=== PATIENT | female | born 1935 ===

== ENCOUNTER 2021-01-10 07:16 | Outpatient (CLI) | payer OTHER | END 2021-01-10 07:25 | disposition home or self-care (01) | LOC: NUCLEAR 07:16 | PROVIDERS: ATTEND Surgery | DX: I73.9 Peripheral vascular disease, unspecified (principal) ==

== ENCOUNTER 2021-01-11 07:48 | Outpatient (CLI) | payer OTHER | END 2021-01-11 07:53 | disposition home or self-care (01) | LOC: NUCLEAR 07:48 | PROVIDERS: ATTEND Surgery | DX: I87.2 Venous insufficiency (chronic) (peripheral) (principal) ==

== ENCOUNTER 2021-02-26 15:40 | Outpatient (CLI) | payer OTHER | END 2021-02-26 15:45 | disposition home or self-care (01) | LOC: PPH VACUNA 15:40 | PROVIDERS: ATTEND Emergency Medicine Pediatric Emergency Medicine | DX: Z23 Encounter for immunization (principal) ==

== ENCOUNTER 2022-11-29 22:45 | Emergency (ER) | payer OTHER ==
[~2022-11-29] VITALS: Ht 154.9 cm; Wt 49.9 kg
[2022-11-29] MEDS ORDERED: LEVOTHYROXINE25 MCG PO (22:51)
[2022-11-29] MEDS ORDERED: ELIQUIS2.5 MG PO (22:51)
[2022-11-29] MEDS ORDERED: CARVEDILOL3.125 M1 PO (22:52)
== END 2022-11-30 05:49 | disposition home or self-care (01) ==
LOC: ER 22:45
DX: R30.0 Dysuria (principal); G20 Parkinson's disease; I10 Essential (primary) hypertension; R53.1 Weakness; N39.0 Urinary tract infection, site not specified; B96.29 Other Escherichia coli [E. coli] as the cause of diseases classified elsewhere; Z16.11 Resistance to penicillins